=== PATIENT | male | born 1950 | race Caucasian/White ===

== ENCOUNTER → 2018-10-06 09:06 | Outpatient (CLI) | payer MEDICARE, OTHER, SELFPAY ==
[2018-10-06 10:20] LABS: Alanine Aminotransferase 23 IU/L (21-72); Albumin 4.2 g/dL (3.5-5.0); Albumin Globulin Ratio 1.4 (1.0-2.8); Alkaline Phosphatase 70 U/L (38-126); Aspartate Aminotransferase 23 IU/L (17-59); Bilirubin Total 0.4 mg/dL (0.2-1.3); Blood Urea Nitrogen 23 mg/dL (9-20); Calcium 8.9 mg/dL (8.4-10.2); Carbon Dioxide 29 mmol/L (22-32); Chloride 102 mmol/L (98-107); Cholesterol 122 mg/dL (140-199); Estimated Glomerular Filt Rate > 60.0 mL/min (>60); Glucose 89 mg/dL (80-110); HDL Cholesterol 59 mg/dL (40-60); HEMOLYSIS 27 (0-50); LDL Cholesterol Calculated 41 mg/dL (<100); Potassium 4.3 mmol/L (3.4-5.1); Sodium 139 mmol/L (137-145); Total Protein 7.2 g/dL (6.3-8.2); Triglycerides 112 mg/dL (35-150)
[2018-10-06 10:45] LABS: Prostate Specific Antigen Scrn 0.656 ng/mL (0.1-4.0)
== END ==
PROVIDERS: Visit Provider Internal Medicine
DX: R91.8 Other nonspecific abnormal finding of lung field (principal); Z12.5 Encounter for screening for malignant neoplasm of prostate; Z13.1 Encounter for screening for diabetes mellitus; Z13.6 Encounter for screening for cardiovascular disorders
CPT/HCPCS: 36415; 80053; 80061; G0103

== ENCOUNTER → 2018-10-20 10:57 | Outpatient (CLI) | payer MEDICARE, OTHER, SELFPAY ==
--- NOTE | 2018-10-20 10:59 | DI.RAD.S_ITS ---
PROCEDURE: XR CHEST 2V INDICATIONS: lung nodules TECHNIQUE: 2 views of the chest were acquired. COMPARISON: None. FINDINGS: Surgical changes and devices: None. Lungs and pleura: No acute airspace disease. There is a 4 mm rounded density projecting over the medial aspect of the suprahilar region of the right upper lung zone and is favored to represent a vessel seen on end. Subtle 5 mm density projects over the periphery of the left lower lung zone which may represent overlapping structures, nipple shadow versus a noncalcified nodule. No pleural effusions or pneumothorax. Mediastinum: Mediastinal contours are normal. Heart size is normal. Bones and chest wall: No suspicious bony abnormalities. Soft tissues appear unremarkable. IMPRESSION: Subtle 5 mm oval nodular density projecting over the lateral aspect of the left lower lung zone which may represent overlapping structures, left nipple shadow, or a noncalcified nodule. Recommend comparison with any available prior chest radiograph if available to document stability. Alternatively, CT of the chest would be more sensitive to evaluate for subcentimeter pulmonary nodules. Dictated by: Sd Malloy M.D. on 10/20/2018 at 12:09 Approved by: Sd Malloy M.D. on 10/20/2018 at 12:15
== END ==
PROVIDERS: PCP Internal Medicine; Visit Provider Internal Medicine
DX: R91.8 Other nonspecific abnormal finding of lung field (principal)
CPT/HCPCS: 71046

== ENCOUNTER 2019-02-03 14:50 | Day surgery (SDC) | payer MEDICARE, OTHER, SELFPAY ==
[2019-02-03] VITALS (7 sets, daily range): BP systolic 108–152; BP diastolic 60–89; PULSE 60–72; RESP 14–16; TEMP 36.3–36.6; O2SAT 97–100; BMI 24.1
[2019-02-03] MEDS: SODIUM CHLORIDE 0.9% 1,000 ML 200 ML IV (15:21)
--- NOTE | 2019-02-03 15:32 | PM.HP.1 ---
History of Present Illness Date Patient Seen: 02/03/19 Time Patient Seen: 15:32 Chief complaint: [id number] SCREENING COLONOSCOPY Narrative: Asymptomatic patient here for screening colonoscopy. He did have a colon polyp about 10 years ago. He was scoped again 5 years ago with no polyps found. Patient History Medical History Sleep apnea (Chronic ~2011) Lung nodules (Chronic) Colon polyps (Chronic ~2002) Vision disorder (Chronic) Depression (Chronic ~2003) Scoliosis (Chronic ~1964) Hemorrhoid (Chronic ~1999) Athlete's foot (Resolved ~1974) Chicken pox (Resolved ~1957) Fractures (Resolved ~2005) Surgical History Anesthesia (Resolved) History of hernia repair (Inactive ~2015) History of left inguinal hernia repair (Inactive ~1992) History of shoulder surgery (Inactive ~2005) Family History Father Hyperlipidemia Heart disease Mother Cancer Heart disease Sister Lupus Sister Overdose Social History household members: spouse Smoking Status: Never smoker Family & Social History Family History Father Hyperlipidemia Heart disease Mother Cancer Heart disease Sister Lupus Sister Overdose Social History: household members spouse Tobacco & Substance use: Smoking Status Never smoker Meds Home Medications Medication Instructions Recorded Confirmed Type No Known Home Medications 02/03/19 02/03/19 History Allergies Allergy/AdvReac Type Severity Reaction Status Date / Time No Known Drug Allergies Allergy Verified 10/20/18 10:06 Review of Systems Review of Systems All systems reviewed & are unremarkable except as noted in HPI and below Exam Vital Signs (past 8 hours): - 02/03/19 15:04 Temperature 97.5 F L Pulse Rate 70 Respiratory Rate 16 Blood Pressure 152/89 H Pulse Oximetry 100 Oxygen Delivery Method Room Air Narrative Exam Narrative: Patient is alert and oriented with no pain Lungs are clear with no rales or wheezes Heart regular rhythm no murmur Abdomen soft no organomegaly no tenderness Rectal to be done at colonoscopy Assessment & Plan Assessment & Plan narrative: Patient with a history of prior colon polyps removed 10 years ago. He is asymptomatic here for an additional screening colonoscopy. He understands the nature of the procedure has no questions which were unanswered
[2019-02-03] MEDS: fentaNYL 250 MCG/5 ML INJ IV (15:52)
[2019-02-03] MEDS: MIDAZOLAM 5 MG/5 ML VIAL IV (15:53)
--- NOTE | 2019-02-03 16:12 | PM.OP.ENDO ---
Operative Date/Time/Diagnoses Date of procedure: 02/03/19 Time of procedure: 16:12 Pre-op diagnosis: Screening colonoscopy Post-op diagnosis: same Procedure & Clinicians Study performed: Total colonoscopy to the cecum. The patient has a normal colon today. Same procedure as scheduled: Yes Surgeon: Shakeel Rosa Procedure Notes SCOAP/Timeout: Was done Procedure in detail: The patient was properly identified during surgical pause. He was given a total of 5 mg of Versed and 250 micro g of fentanyl throughout the procedure which was well-tolerated. The flexible fiberoptic colonoscope inserted transanally to the cecum. The patient has no tumors no polyps no ulcerations no diverticulosis. He had a normal colonoscopy today. Procedure was well tolerated. Scope withdrawal time: 12 Sedation minutes: 26 Specimen(s): none sent Complications: none Recommendations: Colonscopy in 10 years
--- NOTE | 2019-02-03 16:15 | P.OP.ENDO_ITS ---
Operative Date/Time/Diagnoses Date of procedure: 02/03/19 Time of procedure: 16:12 Pre-op diagnosis: Screening colonoscopy Post-op diagnosis: same Procedure & Clinicians Study performed: Total colonoscopy to the cecum. The patient has a normal colon today. Same procedure as scheduled: Yes Surgeon: Shakeel Rosa Procedure Notes SCOAP/Timeout: Was done Procedure in detail: The patient was properly identified during surgical pause. He was given a total of 5 mg of Versed and 250 micro g of fentanyl throughout the procedure which was well-tolerated. The flexible fiberoptic colonoscope inserted transanally to the cecum. The patient has no tumors no polyps no ulce rations no diverticulosis. He had a normal colonoscopy today. Procedure was well tolerated. Scope withdrawal time: 12 Sedation minutes: 26 Specimen(s): none sent Complications: none Recommendations: Colonscopy in 10 years
== END 2019-02-03 17:03 | disposition home or self-care (01) ==
PROVIDERS: PCP Internal Medicine; Visit Provider Surgery
PROC: 0DJD8ZZ Inspection of Lower Intestinal Tract, Via Natural or Artificial Opening Endoscopic (ICD-10-PCS; CPT 45378; principal; 2019-02-03 16:00)
DX: Z12.11 Encounter for screening for malignant neoplasm of colon (principal); G47.30 Sleep apnea, unspecified; F32.9 Major depressive disorder, single episode, unspecified; Z86.010 Personal history of colon polyps
CPT/HCPCS: G0105; 99152; J2250; J3010

== ENCOUNTER → 2019-04-13 08:59 | Outpatient (CLI) | payer MEDICARE, OTHER, SELFPAY ==
[2019-04-13 09:45] LABS: White Blood Cell Count 3.8 X10^3/uL (4.5-11.0)
[2019-04-13 10:04] LABS: Alanine Aminotransferase 15 IU/L (21-72); Albumin 4.2 g/dL (3.5-5.0); Albumin Globulin Ratio 1.5 (1.0-2.8); Alkaline Phosphatase 70 U/L (38-126); Aspartate Aminotransferase 22 IU/L (17-59); Bilirubin Total 0.5 mg/dL (0.2-1.3); Bilirubin Unconjugated 0.5 mg/dL (0.0-1.1); Blood Urea Nitrogen 24 mg/dL (9-20); Calcium 9.2 mg/dL (8.4-10.2); Carbon Dioxide 31 mmol/L (22-32); Chloride 103 mmol/L (98-107); Estimated Glomerular Filt Rate > 60.0 mL/min (>60); Globulin 2.8 g/dL (1.7-4.1); Glucose 83 mg/dL (80-110); HEMOLYSIS < 15 (0-50); Potassium 4.2 mmol/L (3.4-5.1); Sodium 138 mmol/L (137-145)
== END ==
PROVIDERS: PCP Internal Medicine; Visit Provider Podiatrist
DX: B35.1 Tinea unguium (principal); M79.671 Pain in right foot
CPT/HCPCS: 36415; 80048; 80076; 85048

== ENCOUNTER → 2020-03-18 12:11 | Outpatient (CLI) | payer MEDICARE, OTHER, SELFPAY ==
[2020-03-18 12:26] LABS: Add Manual Diff / Slide Review NO; Basophils Absolute Auto 100 /uL (0-100); Basophils Percent Auto 1.1 % (0-2); Eosinophils Absolute Auto 100 /uL (0-450); Eosinophils Percent Auto 0.9 % (2-4); Hematocrit 41.4 % (41-53); Hemoglobin 14.3 g/dL (13.5-17.5); Lymphocytes Absolute Auto 1500 /uL (1100-4500); Lymphocytes Percent Auto 24.7 % (25-40); Mean Corpuscular HGB Conc 34.6 % (30-36); Mean Corpuscular Hemoglobin 31.1 PG (26-34); Mean Corpuscular Volume 89.8 fL (80-100); Monocytes Absolute Auto 700 /uL (0-900); Monocytes Percent Auto 11.1 % (3-14); Neutrophils Absolute Auto 3800 /uL (1500-7000); Neutrophils Percent Auto 62.2 % (50-75); Platelet Count 215 X10^3/uL (150-400); Red Blood Cell Count 4.61 X10^6/uL (4.5-5.9); White Blood Cell Count 6.2 X10^3/uL (4.5-11.0)
[2020-03-18 12:44] LABS: Alanine Aminotransferase 15 IU/L (<50); Albumin 4.4 g/dL (3.5-5.0); Albumin Globulin Ratio 1.3 (1.0-2.8); Alkaline Phosphatase 85 U/L (38-126); Aspartate Aminotransferase 25 IU/L (17-59); BUN Creatinine Ratio 20.6 (6-22); Bilirubin Total 0.6 mg/dL (0.2-1.3); Blood Urea Nitrogen 21 mg/dL (9-20); Calcium 9.4 mg/dL (8.4-10.2); Carbon Dioxide 31 mmol/L (22-32); Chloride 102 mmol/L (98-107); Creatine Kinase 83 U/L (55-170); Estimated Glomerular Filt Rate > 60.0 mL/min (>60); Globulin 3.3 g/dL (1.7-4.1); Glucose 83 mg/dL (80-110); HEMOLYSIS 17 (0-50); Lipase 81 U/L (23-300); Potassium 4.3 mmol/L (3.4-5.1); Sodium 140 mmol/L (137-145); Total Protein 7.7 g/dL (6.3-8.2)
[2020-03-18 12:55] LABS: NT-proBNP (BNP-Adult 18+) 277 pg/mL (<125); Troponin I < 0.012 ng/mL (0.01-0.034)
== END ==
PROVIDERS: PCP Internal Medicine; Referring Provider Physician Assistant; Visit Provider Physician Assistant
DX: R07.89 Other chest pain (principal); R06.00 Dyspnea, unspecified
CPT/HCPCS: 36415; 80053; 82550; 83690; 83880; 84484; 85025

== ENCOUNTER → 2020-03-25 16:49 | Outpatient (CLI) | payer MEDICARE, OTHER, SELFPAY ==
--- NOTE | 2020-03-25 16:52 | DI.RAD.S_ITS ---
PROCEDURE: XR CHEST 2V INDICATIONS: chest pain TECHNIQUE: 2 views of the chest were acquired. COMPARISON: [facility], CR, XR CHEST 2V, 10/20/2018, 11:05. FINDINGS: Surgical changes and devices: None. Lungs and pleura: Hyperinflation consistent with COPD. Mild left basilar atelectasis. Lungs are otherwise clear. No pleural effusions or pneumothorax. Mediastinum: Mediastinal contours are normal. Heart size is normal. Bones and chest wall: No suspicious bony abnormalities. Soft tissues appear unremarkable. IMPRESSION: 1. No acute cardiopulmonary disease. 2. COPD. Dictated by: Brendon Sinha M.D. on 03/26/2020 at 10:00 Approved by: Brendon Sinha M.D. on 03/26/2020 at 10:01
== END ==
PROVIDERS: PCP Internal Medicine; Referring Provider Internal Medicine; Visit Provider Internal Medicine
DX: R07.9 Chest pain, unspecified (principal); J44.9 Chronic obstructive pulmonary disease, unspecified
CPT/HCPCS: 71046

== ENCOUNTER → 2020-04-01 14:48 | Outpatient (CLI) | payer MEDICARE, OTHER, SELFPAY ==
[2020-04-02 07:38] LABS: COVID19 Sendout Not Detected (Not Detect)
== END ==
PROVIDERS: PCP Internal Medicine; Visit Provider Physician Assistant
DX: Z11.59 Encounter for screening for other viral diseases (principal)
CPT/HCPCS: 87635

== ENCOUNTER → 2020-04-04 07:16 | Outpatient (CLI) | payer MEDICARE, OTHER, SELFPAY ==
--- NOTE | 2020-04-12 15:54 | PM.PFT.1 ---
Pulmonary Function Test Referral & Results Date Patient Seen: 04/04/20 Requesting provider: Chan Al Indication: Dyspnea Results: The spirometry demonstrates an FVC of 4.82 L which is 92% of predicted. The FEV1 was measured at 3.27 L which is 84% of predicted. The FEV1/FVC ratio was 68 which is 91% of predicted. Following the administration of bronchodilator there was no appreciable change. Lung volumes show an SVC of 5.13 L which is 98% of predicted. The diffusing capacity was measured at 28.92 which is 76% of predicted. The maximum voluntary ventilation was minimally reduced Interpretation: This study demonstrates perhaps very mild obstructive lung disease based on slight reduction FEV1 and minimal reduction in FEV1/FVC ratio as well as shape a flow volume loop. No notable evidence of benefit following bronchodilator There may also be a very minimal reduction in diffusing capacity as above
== END ==
PROVIDERS: PCP Internal Medicine; Referring Provider Internal Medicine; Visit Provider Internal Medicine
DX: R91.8 Other nonspecific abnormal finding of lung field (principal); R06.00 Dyspnea, unspecified; J98.8 Other specified respiratory disorders
CPT/HCPCS: 94060; 94726; 94729

== ENCOUNTER → 2020-04-05 13:08 | Outpatient (CLI) | payer MEDICARE, OTHER, SELFPAY ==
--- NOTE | 2020-04-05 14:18 | PM.TREADMILL ---
Cardiac Stress Test Report Referral & Results Date Patient Seen: 04/05/20 Requesting provider: Chan Al Indication: Chest tightness and left arm symptoms Rest ECG: Unremarkable Procedure Note: Today following both written and verbal informed consent, the patient was exercised according to a standard [facility] protocol. The patient exercised for a total of 7 minutes 38 seconds achieving a maximum heart rate of 139. Patient's maximum systolic blood pressure was 180. This was an estimated 10.1 MET's. With exercise there is a small bit of ST segment flattening in lead V2 only. However as patient recovered without exercise ST segments became downsloping with minimal if any depression throughout the anterior precordial leads This was associated with the onset of patient's chest tightness and or left arm symptoms. Rare PAC identified Function aerobic impairment rated 0 on the active scale Impression: Possible ischemic change as above with fairly typical exercise-induced anginal type symptoms Clinical correlation suggested Please note: Actual ECG tracings can be found in the PACS system.
== END ==
PROVIDERS: PCP Internal Medicine; Referring Provider Internal Medicine; Visit Provider Internal Medicine
DX: R07.89 Other chest pain (principal)
CPT/HCPCS: 93016; 93017; 93018

== ENCOUNTER → 2020-06-03 14:54 | Outpatient (CLI) | payer MEDICARE, OTHER, SELFPAY ==
[2020-06-03 16:26] LABS: COVID19 -Nasal RAPID Negative (Negative)
== END ==
PROVIDERS: PCP Internal Medicine; Visit Provider Physician Assistant
DX: Z11.59 Encounter for screening for other viral diseases (principal)
CPT/HCPCS: 87635

== ENCOUNTER → 2020-07-19 11:02 | Outpatient (CLI) | payer MEDICARE, OTHER, SELFPAY ==
[2020-07-19] MEDS: COVID-19 VACC #1, MRNA(MOD) 100 MCG/0.5 ML VIAL IM (11:10)
== END ==
PROVIDERS: PCP Internal Medicine; Visit Provider Internal Medicine
DX: Z23 Encounter for immunization (principal)
CPT/HCPCS: 0011A; 91301

== ENCOUNTER → 2020-08-16 12:03 | Outpatient (CLI) | payer MEDICARE, OTHER, SELFPAY ==
[2020-08-16] MEDS: COVID-19 VACC #2, MRNA(MOD) 100 MCG/0.5 ML VIAL IM (12:05)
== END ==
PROVIDERS: PCP Internal Medicine; Visit Provider Internal Medicine
DX: Z23 Encounter for immunization (principal)
CPT/HCPCS: 0012A; 91301

== ENCOUNTER 2020-09-02 10:30 | Outpatient (RCR) | payer MEDICARE, OTHER, SELFPAY | END 2020-09-02 11:30 | LOC: CAR 10:30 | PROVIDERS: PCP Internal Medicine; Referring Provider Internal Medicine Interventional Cardiology; Visit Provider Internal Medicine Interventional Cardiology | DX: Z95.5 Presence of coronary angioplasty implant and graft (principal) | CPT/HCPCS: 93798 ==

== ENCOUNTER → 2024-01-26 15:13 | Outpatient (CLI) | payer MEDICARE, OTHER, SELFPAY ==
[2024-01-26 17:21] LABS: Add Manual Diff / Slide Review NO; Basophils Absolute Auto 100 /uL (0-100); Basophils Percent Auto 1.5 % (0-2); Eosinophils Absolute Auto 200 /uL (0-450); Eosinophils Percent Auto 3.2 % (2-4); Hematocrit 38.5 % (41-53); Hemoglobin 13.2 g/dL (13.5-17.5); Lymphocytes Absolute Auto 1500 /uL (1100-4500); Lymphocytes Percent Auto 28.2 % (25-40); Mean Corpuscular HGB Conc 34.2 % (30-36); Mean Corpuscular Hemoglobin 31.3 PG (26-34); Mean Corpuscular Volume 91.5 fL (80-100); Monocytes Absolute Auto 700 /uL (0-900); Monocytes Percent Auto 13.9 % (3-14); Neutrophils Absolute Auto 2800 /uL (1500-7000); Neutrophils Percent Auto 53.2 % (50-75); Platelet Count 219 X10^3/uL (150-400); Red Blood Cell Count 4.21 X10^6/uL (4.5-5.9); Red Cell Distribution Width 13.8 % (11.6-14.8); White Blood Cell Count 5.2 X10^3/uL (4.5-11.0)
[2024-01-26 18:25] LABS: Alanine Aminotransferase 16 IU/L (<50); Albumin Globulin Ratio 1.5 (1.0-2.8); Alkaline Phosphatase 79 U/L (38-126); Aspartate Aminotransferase 24 IU/L (17-59); Bilirubin Total 0.6 mg/dL (0.2-1.3); Blood Urea Nitrogen 25 mg/dL (9-20); Calcium 8.8 mg/dL (8.4-10.2); Carbon Dioxide 26 mmol/L (22-32); Chloride 106 mmol/L (98-107); Cholesterol 126 mg/dL (140-199); Estimated Glomerular Filt Rate > 60 mL/min (>60); Globulin 2.6 g/dL (1.7-4.1); Glucose 95 mg/dL (80-110); HDL Cholesterol 84 mg/dL (40-60); HEMOLYSIS < 15 (0-50); LDL Cholesterol Calculated 19 mg/dL (<100); Potassium 4.1 mmol/L (3.4-5.1); Sodium 138 mmol/L (137-145); Total Protein 6.6 g/dL (6.3-8.2); Triglycerides 115 mg/dL (35-150)
== END ==
PROVIDERS: PCP Internal Medicine; Referring Provider Internal Medicine; Visit Provider Internal Medicine
DX: I25.10 Atherosclerotic heart disease of native coronary artery without angina pectoris (principal); R91.8 Other nonspecific abnormal finding of lung field
CPT/HCPCS: 36415; 80053; 80061; 85025

== ENCOUNTER → 2024-02-01 10:04 | Outpatient (CLI) | payer MEDICARE, OTHER, SELFPAY ==
--- NOTE | 2024-02-01 10:16 | DI.CT.S_ITS ---
PROCEDURE: CT CHEST WO CON INDICATIONS: pulm nodules TECHNIQUE: Noncontrast 5 mm thick sections acquired from the pulmonary apices to the posterior costophrenic angles. 1 mm lung window, 5 mm thick coronal and sagittal and 7 mm axial MIP reformats were then acquired. For radiation dose reduction, the following was used: automated exposure control, adjustment of mA and/or kV according to patient size. COMPARISON: Note: Relevant priors could not be obtained. FINDINGS: Image quality: Diagnostic. Lower Neck: No enlarged lymph nodes. Thyroid: No thyroid nodules which require sonographic follow up, per consensus guidelines. Axillae: No enlarged lymph nodes. Chest Wall: Unremarkable. Bones: Unremarkable. Lungs and Pleura: No pneumothorax or pleural effusions. There are juxtapleural nodules with smooth margins associated with the right minor fissure (series 5, image 23) and right major fissure (series 5, image 18); location and appearance favor benign intrapulmonary lymph nodes. Typical cyst in the inferior left hepatic lobe. 9 x 6 mm solid nodule in the left lower lobe (series 3, image 242). Heart: Heart size is normal. No pericardial effusion. Thoracic Vessels: The aorta and pulmonary arteries demonstrate normal size. Mediastinum and Cherrie: No enlarged lymph nodes. Esophagus: No wall thickening. No hiatal hernia. Upper Abdomen: Visualized upper abdomen solid organs and bowel loops appear normal. IMPRESSION: Relevant priors could not be obtained. If these become available, an addendum can be made to this report upon request. 9 x 6 mm solid nodule in the left lower lobe. Recommend 6-12 month follow-up, per Fleischner society guidelines , unless less priors could be obtained. Dictated by: Moses Branham M.D. on 02/03/2024 at 16:31 Approved by: Moses Branham M.D. on 02/03/2024 at 16:34
== END ==
PROVIDERS: PCP Internal Medicine; Referring Provider Internal Medicine; Visit Provider Internal Medicine
DX: R91.8 Other nonspecific abnormal finding of lung field (principal)
CPT/HCPCS: 71250

== ENCOUNTER → 2024-08-10 11:58 | Outpatient (CLI) | payer MEDICARE, OTHER, SELFPAY ==
[2024-08-10 12:38] LABS: Add Manual Diff / Slide Review NO; Basophils Absolute Auto 100 /uL (0-100); Basophils Percent Auto 1.3 % (0-2); Eosinophils Absolute Auto 100 /uL (0-450); Eosinophils Percent Auto 2.4 % (2-4); Hematocrit 40.2 % (41-53); Hemoglobin 13.5 g/dL (13.5-17.5); Lymphocytes Absolute Auto 1500 /uL (1100-4500); Lymphocytes Percent Auto 33.6 % (25-40); Mean Corpuscular HGB Conc 33.6 % (30-36); Mean Corpuscular Hemoglobin 30.6 PG (26-34); Mean Corpuscular Volume 91.2 fL (80-100); Monocytes Absolute Auto 600 /uL (0-900); Monocytes Percent Auto 14.2 % (3-14); Neutrophils Absolute Auto 2100 /uL (1500-7000); Neutrophils Percent Auto 48.5 % (50-75); Platelet Count 210 X10^3/uL (150-400); Red Blood Cell Count 4.41 X10^6/uL (4.5-5.9); White Blood Cell Count 4.4 X10^3/uL (4.5-11.0)
== END ==
LOC: LAB 12:00
PROVIDERS: PCP Internal Medicine; Referring Provider Physician Assistant; Visit Provider Physician Assistant
DX: L30.9 Dermatitis, unspecified (principal)
CPT/HCPCS: 36415; 85025; 86038

== ENCOUNTER → 2025-01-09 08:22 | Outpatient (CLI) | payer MEDICARE, OTHER, SELFPAY ==
[2025-01-09 09:30] LABS: Add Manual Diff / Slide Review NO; Hematocrit 39.5 % (41-53); Hemoglobin 13.4 g/dL (13.5-17.5); Lymphocytes Absolute Auto 1400 /uL (1100-4500); Mean Corpuscular HGB Conc 34.0 % (30-36); Mean Corpuscular Hemoglobin 30.6 PG (26-34); Mean Corpuscular Volume 90.1 fL (80-100); Platelet Count 202 X10^3/uL (150-400)
[2025-01-09 09:45] LABS: Alanine Aminotransferase 18 IU/L (<50); Albumin 4.6 g/dL (3.5-5.0); Albumin Globulin Ratio 1.8 (1.0-2.8); Alkaline Phosphatase 74 U/L (38-126); Blood Urea Nitrogen 21 mg/dL (9-20); Calcium 9.3 mg/dL (8.4-10.2); Carbon Dioxide 29 mmol/L (22-32); Chloride 102 mmol/L (98-107); Cholesterol 116 mg/dL (140-199); Estimated Glomerular Filt Rate > 60 mL/min (>60); Globulin 2.6 g/dL (1.7-4.1); Glucose 97 mg/dL (70-99); HDL Cholesterol 87 mg/dL (40-60); HEMOLYSIS < 15 (0-50); Potassium 4.2 mmol/L (3.4-5.1); Sodium 137 mmol/L (137-145); Total Protein 7.2 g/dL (6.3-8.2); Triglycerides 68 mg/dL (35-150)
== END ==
PROVIDERS: PCP Internal Medicine; Referring Provider Internal Medicine; Visit Provider Internal Medicine
DX: Z12.5 Encounter for screening for malignant neoplasm of prostate (principal); I10 Essential (primary) hypertension; I25.10 Atherosclerotic heart disease of native coronary artery without angina pectoris
CPT/HCPCS: 36415; 80053; 80061; 85025; G0103